=== PATIENT | female | born 2000 | race Caucasian/White ===

== ENCOUNTER 2020-06-12 22:01 | Emergency (ER) | payer OTHER, SELFPAY ==
[2020-06-12 22:05] VITALS: BP 149/81; PULSE 105; RESP 20; TEMP 36.8; O2SAT 97; BMI 21.6
[2020-06-12 23:56] LABS: RBC Urine 0-1/HPF (0-5/HPF)
[2020-06-12 23:57] LABS: Bacteria Urine Many (>30); Culture Indicated Urine Specimen Cultured; Squamous Epithelial Cell Urine 1-5 /HPF (0-5/HPF); WBC Urine 1-5/HPF (0-5/HPF)
--- NOTE | 2020-06-13 00:59 | ED_ITS ---
HPI - GI Bleed General Chief complaint: GI Bleed Stated complaint: thinks allergic reaction to ETOH Time Seen by Provider: 06/13/20 00:04 Source: patient Mode of arrival: Ambulatory Limitations: no limitations History of Present Illness HPI Narrative: 19-year-old woman no significant past medical history comes in wi concerns that she may be having an acute allergic reaction to alcohol. She states that she was drinking vodka this evening and then had an episode of vomiting with blood in it. She describes red blood without clots. She does not describe any black stools. She states that this has been a very difficult week and she has had significant social stressors. She describes a burning-type pain in the chest and epigastrium over this week. She notes that it is worse with eating. She had an episode of vomiting after eating 4 days ago that seem to be associated with this same stress-induced gastric pain. She has never been diagnosed with ulcers and has not tried any additional medications including antacids, H2 blockers or proton pump inhibitors. Related Data Previous Rx's Medication Instructions Recorded omeprazole 20 mg PO DAILY #14 cap 06/13/20 Allergies Allergy/AdvReac Type Severity Reaction Status Date / Time No Known Drug Allergies Allergy Verified 06/12/20 22:12 Review of Systems Review of Systems Narrative: Remainder of review of systems including constitutional, ENT, cardiovascular, respiratory, GI, , musculoskeletal, skin, neurologic and psychiatric systems reviewed and are unremarkable except as noted in HPI. Patient History Social History Smoking Status: Current every day smoker Smoking Status: Current every day smoker tobacco type: vaping alcohol intake frequency: a few times a week Alcohol type: hard liquor Substance Use Type: does not use Exam Narrative Exam Narrative: General: Healthy appearing, in no acute distress. Able to give a complete and coherent history. Well-nourished well-developed HEENT: Moist mucous membranes, dilated pupils with mildly injected sclera bilaterally Respiratory: Lungs are clear to auscultation, no wheezing no rales no rhonchi. Full and symmetrical air movement Cardiac: Regular rate and rhythm no murmurs no bruits Abdomen: Soft, mild epigastric tenderness without rebound or guarding, good bowel tones, no flank pain Skin: Warm and dry, no rashes Neurologic: Grossly neurologically intact with no obvious asymmetries or abnormalities Extremities: No trauma, well perfused Psych: Cooperative, appropriate insight and affect Initial Vital Signs Initial Vital Signs: Vital Signs Temperature 98.2 F 06/12/20 22:05 Pulse Rate 105 H 06/12/20 22:05 Respiratory Rate 20 06/12/20 22:05 Blood Pressure 149/81 H 06/12/20 22:05 Pulse Oximetry 97 06/12/20 22:05 Course Orders Ordered: ED Orders 06/12/20 23:13 Urine Culture Stat Urine Microscopic Stat 06/13/20 01:15 Complete Blood Count AUTO DIFF Stat Comprehensive Metabolic Panel Stat Lipase Stat Magnesium Stat Type and Screen Stat Discontinued Medications Sodium Chloride (Normal Saline 0.9%) 1,000 mls @ 1,000 mls/hr IV BOLUS ONE Stop: 06/13/20 03:08 Last Admin: 06/13/20 01:41 Dose: 1,000 mls/hr Documented by: MAGALY Ondansetron HCl (Ondansetron 4 Mg/2 Ml Inj) 4 mg IV NOW ONE Stop: 06/13/20 01:10 Last Admin: 06/13/20 01:42 Dose: 4 mg Documented by: MAGALY Pantoprazole Sodium (Pantoprazole 40 Mg Vial) 40 mg IV NOW ONE Stop: 06/13/20 01:10 Last Admin: 06/13/20 01:42 Dose: 40 mg Documented by: MAGALY Vital Signs Vital signs: Vital Signs - 8 hr 06/12/20 22:05 06/13/20 01:22 Temperature 98.2 F Pulse Rate 105 H 81 Respiratory Rate 20 16 Blood Pressure 149/81 H 127/86 Pulse Oximetry 97 98 MDM - GI Bleed Medical Records Attestation: I reviewed the patient's medical records. Lab Data Attestation: I reviewed the patient's lab results. Result diagrams: 06/13/20 01:15 06/13/20 01:15 Labs: Lab Results 06/12/20 06/13/20 06/13/20 Range/Units 23:13 01:15 01:15 WBC 7.7 (4.5-11.0) X10^3/uL RBC 4.93 (4.0-5.2) X10^6/uL Hgb 14.4 (12.0-16.0) g/dL Hct 43.2 (36-46) % MCV 87.5 (80-100) fL MCH 29.1 (26-34) PG MCHC 33.3 (30-36) % RDW 14.6 (11.6-14.8) % Plt Count 322 (150-400) X10^3/uL Neut % (Auto) 66.8 (50-75) % Lymph % (Auto) 24.7 L (25-40) % Alfalfa % (Auto) 8.1 (3-14) % Eos % (Auto) 0.1 L (2-4) % Baso % (Auto) 0.3 (0-2) % Neut # (Auto) 5100 (5674-6992) /uL Lymph # (Auto) 1900 (1935-3209) /uL Alfalfa # (Auto) 600 (0-900) /uL Eos # (Auto) 0 (0-450) /uL Baso # (Auto) 0 (0-100) /uL Sodium 140 (137-145) mmol/L Potassium 4.1 (3.4-5.1) mmol/L Chloride 103 (98-107) mmol/L Carbon Dioxide 27 (22-32) mmol/L BUN 9 (7-17) mg/dL Creatinine 0.64 (0.52-1.04) mg/dL Estimated GFR > 60.0 (>60) mL/min BUN/Creatinine Ratio 14.1 (6-22) Glucose 108 H (70-100) mg/dL Calcium 9.0 (8.4-10.2) mg/dL Magnesium 2.1 (1.6-2.3) mg/dL Total Bilirubin 0.2 (0.2-1.3) mg/dL AST 50 H (14-36) IU/L ALT 20 (<35) IU/L Alkaline Phosphatase 56 (38-126) U/L Total Protein 7.5 (6.3-8.2) g/dL Albumin 4.4 (3.5-5.0) g/dL Globulin 3.1 (1.7-4.1) g/dL Albumin/Globulin Ratio 1.4 (1.0-2.8) Lipase 45 (23-300) U/L Urine RBC 0-1/hpf (0-5/HPF) Urine WBC 1-5/hpf (0-5/HPF) Ur Squamous Epith Cells 1-5 /hpf (0-5/HPF) Urine Bacteria Many (>30) H (None) Ur Culture Indicated? Specimen cultured Blood Type Antibody Screen 06/13/20 Range/Units 01:15 WBC (4.5-11.0) X10^3/uL RBC (4.0-5.2) X10^6/uL Hgb (12.0-16.0) g/dL Hct (36-46) % MCV (80-100) fL MCH (26-34) PG MCHC (30-36) % RDW (11.6-14.8) % Plt Count (150-400) X10^3/uL Neut % (Auto) (50-75) % Lymph % (Auto) (25-40) % Alfalfa % (Auto) (3-14) % Eos % (Auto) (2-4) % Baso % (Auto) (0-2) % Neut # (Auto) (9224-7957) /uL Lymph # (Auto) (5160-3521) /uL Alfalfa # (Auto) (0-900) /uL Eos # (Auto) (0-450) /uL Baso # (Auto) (0-100) /uL Sodium (137-145) mmol/L Potassium (3.4-5.1) mmol/L Chloride (98-107) mmol/L Carbon Dioxide (22-32) mmol/L BUN (7-17) mg/dL Creatinine (0.52-1.04) mg/dL Estimated GFR (>60) mL/min BUN/Creatinine Ratio (6-22) Glucose (70-100) mg/dL Calcium (8.4-10.2) mg/dL Magnesium (1.6-2.3) mg/dL Total Bilirubin (0.2-1.3) mg/dL AST (14-36) IU/L ALT (<35) IU/L Alkaline Phosphatase (38-126) U/L Total Protein (6.3-8.2) g/dL Albumin (3.5-5.0) g/dL Globulin (1.7-4.1) g/dL Albumin/Globulin Ratio (1.0-2.8) Lipase (23-300) U/L Urine RBC (0-5/HPF) Urine WBC (0-5/HPF) Ur Squamous Epith Cells (0-5/HPF) Urine Bacteria (None) Ur Culture Indicated? Blood Type A Positive Antibody Screen Negative Point of Care Testing Test Results Negative Urine Dip Bedside Urine Glucose Negative Bedside Urine Bilirubin - Negative Bedside Urine Ketone +/- 5 Urine Specific [place] 1.015 Bedside Urine Occult Blood +/- Bedside Urine pH 6.0 Bedside Urine Protein - Negative Bedside Urine Urobilinogen - Negative Bedside Urine Nitrite - Negative Bedside Urine Leukocytes +++ 500 Esterase MDM Narrative Medical decision making narrative: Findings and studies reviewed with patient. She is feeling somewhat better after the IV Protonix and fluids. Recommended avoiding alcohol or other recreational drugs for the next 2 weeks. Trying a 2 week course of omeprazole to try and reduce some of the burning sensation in the epigastrium and follow-up with her primary care physician. She is reassured and questions are answered. She is safe for home discharge Discharge Plan Departure Patient Disposition: Home Clinical Impression: Acute epigastric pain Vomiting Qualifiers: Vomiting type: unspecified Vomiting Intractability: non-intractable Nausea presence: with nausea Qualified Code(s): R11.2 - Nausea with vomiting, unspecified Instructions: DI for Gastritis Activity Restrictions/Additional Instructions: Thank you for coming in today Your blood work was reassuring. There is no evidence of acute anemia. I suspect that your increased stressors are causing some irritation to the stomach lining and then the alcohol that you had tonight was simply adding insult to injury. I would recommend that you avoid alcohol and any other recreational drugs for at least the next 2 weeks to try to give your body a chance to deal with these stressors in a healthier way. Your urine showed a number of bacteria however it does not otherwise look like a bladder infection. This will be cultured and if it is appropriate to be on antibiotics we will contact you by phone. I am going to prescribe you omeprazole to help reduce stomach acid, please completed 2 week course. If you continue to have epigastric pain, please follow-up with her primary care physician I hope you feel better. Prescriptions: New omeprazole 20 mg capsule,delayed release(DR/EC) 20 mg PO DAILY Qty: 14 RF: 0
[2020-06-13 01:22] VITALS: BP 127/86; PULSE 81; RESP 16; O2SAT 98
[2020-06-13 01:34] LABS: Add Manual Diff / Slide Review NO; Basophils Absolute Auto 0 /uL (0-100); Basophils Percent Auto 0.3 % (0-2); Eosinophils Absolute Auto 0 /uL (0-450); Eosinophils Percent Auto 0.1 % (2-4); Hematocrit 43.2 % (36-46); Hemoglobin 14.4 g/dL (12.0-16.0); Lymphocytes Absolute Auto 1900 /uL (1100-4500); Lymphocytes Percent Auto 24.7 % (25-40); Mean Corpuscular HGB Conc 33.3 % (30-36); Mean Corpuscular Hemoglobin 29.1 PG (26-34); Mean Corpuscular Volume 87.5 fL (80-100); Monocytes Absolute Auto 600 /uL (0-900); Monocytes Percent Auto 8.1 % (3-14); Neutrophils Absolute Auto 5100 /uL (1500-7000); Neutrophils Percent Auto 66.8 % (50-75); Platelet Count 322 X10^3/uL (150-400); Red Blood Cell Count 4.93 X10^6/uL (4.0-5.2); Red Cell Distribution Width 14.6 % (11.6-14.8); White Blood Cell Count 7.7 X10^3/uL (4.5-11.0)
[2020-06-13 01:40] LABS: Alanine Aminotransferase 20 IU/L (<35); Albumin 4.4 g/dL (3.5-5.0); Albumin Globulin Ratio 1.4 (1.0-2.8); Alkaline Phosphatase 56 U/L (38-126); Aspartate Aminotransferase 50 IU/L (14-36); BUN Creatinine Ratio 14.1 (6-22); Bilirubin Total 0.2 mg/dL (0.2-1.3); Blood Urea Nitrogen 9 mg/dL (7-17); Carbon Dioxide 27 mmol/L (22-32); Chloride 103 mmol/L (98-107); Estimated Glomerular Filt Rate > 60.0 mL/min (>60); Globulin 3.1 g/dL (1.7-4.1); Glucose 108 mg/dL (70-100); HEMOLYSIS < 15 (0-50); Lipase 45 U/L (23-300); Magnesium 2.1 mg/dL (1.6-2.3); Potassium 4.1 mmol/L (3.4-5.1); Sodium 140 mmol/L (137-145); Total Protein 7.5 g/dL (6.3-8.2)
[2020-06-13] MEDS: SODIUM CHLORIDE 0.9% 1,000 ML 1000 ML IV (01:41)
[2020-06-13] MEDS: ONDANSETRON 4 MG/2 ML INJ IV (01:42)
[2020-06-13] MEDS: PANTOPRAZOLE 40 MG VIAL IV (01:42)
[2020-06-13 05:46] VITALS: BP 120/70; PULSE 84; RESP 18; TEMP 36.4; O2SAT 98
--- NOTE | 2020-06-20 19:20 | PC.NURSE ---
Late Entry IV stop time NS 1000mls infused; IV stop time 3793 06/13/20
== END 2020-06-13 05:47 | disposition home or self-care (01) ==
PROVIDERS: Emergency Provider Emergency Medicine
DX: R10.13 Epigastric pain (principal); R11.2 Nausea with vomiting, unspecified
CPT/HCPCS: 36415; 80053; 81003; 81015; 81025; 83690; 83735; 85025; 86850; 86900; 86901; 87077; 87086; 87147; 87186; 96361; 96374; 96375; 99282; 99284; C9113; J2405